=== PATIENT | male | born 1995 | race Caucasian/White ===

== ENCOUNTER 2021-11-20 07:36 | Emergency (ER) | payer MEDICARE, MEDICAID ==
[~2021-11-20] VITALS: Ht 182.9 cm; Wt 61.0 kg
[2021-11-20 07:47] VITALS: BP 125/82
== END 2021-11-20 10:50 | disposition left against medical advice (07) ==
LOC: ER 07:36
DX: J34.89 Other specified disorders of nose and nasal sinuses (principal); Z53.21 Procedure and treatment not carried out due to patient leaving prior to being seen by health care provider